=== PATIENT | female | born 1975 | race Caucasian/White ===

== ENCOUNTER 2016-04-12 23:16 | Emergency (ER) | payer OTHER ==
[2016-04-12] MEDS ORDERED: 0.9 % SODIUM CHLORIDE 1,000 ML BAG IV ONE (23:37)
[2016-04-12] MEDS ORDERED: ONDANSETRON HCL IV 4 MG/2 ML VIAL IV ONE (23:37)
[2016-04-12] MEDS ORDERED: KETOROLAC 30 MG/ML VIAL IVP ONE (23:37)
--- NOTE | 2016-04-12 23:43 | Emergency Department Record ---
History of Present Illness - General Chief Complaint: Abdominal Pain Stated Complaint: RUQ PAIN/BACK PAIN Time Seen by Provider: 04/12/16 23:36 Source: Patient Mode of Arrival: Ambulatory Limitations: No limitations - History of Present Illness Initial Comments: 41 yo female presents with right upper abdominal pain that started about 1.5 hours ago after eating beef stirfry. She has some nausea. No fevers or chills. She denies a similar history of the same in the past. No diarrhea. She has a history of gastric sleeve surgery in August. She denies any complications from the surgery. She still has her gall bladder. MD Complaint: Abdominal pain Onset/Timin -: Minutes(s) Location: RUQ Radiation: Back Migration to: RUQ Severity: Moderate Quality: Aching Consistency: Constant Improves With: Nothing Worsens With: Eating Associated Symptoms: Chills, Nausea - Related Data Home Medications Medication Instructions Recorded Confirmed Last Taken Albuterol Sulfate [Ventolin Hfa] 1 - 2 puff IH .EVERY 4-6 HOURS PRN 11/03/1511/02/15 Amitriptyline HCl 50 mg PO QPM 11/03/15 11/03/15 11/02/15 Ascorbic Acid [Vitamin C] 1,000 mg PO BID 11/03/15 11/03/15 11/02/15 Cholecalciferol (Vitamin D3) 5,000 unit PO QAM 11/03/15 11/03/15 11/02/15 [Vitamin D3] Desog-E.estradiol/E.estradiol 1 each PO QPM 11/03/15 11/03/15 11/02/15 [Kariva 28 Day Tablet] Ferrous Gluconate [Iron] 65 mg PO BID 11/03/15 11/03/15 11/02/15 Fluticasone/Vilanterol [Breo 1 inh PO QAM 11/03/15 11/03/15 11/02/15 Ellipta 200-25 Mcg INH] Gabapentin [Gabapentin] 600 mg PO TID 11/03/15 11/03/15 11/02/15 Omeprazole [Omeprazole] 40 mg PO QAM 11/03/15 11/03/15 11/02/15 Prednisone [Prednisone] 7.5 mg PO QAM 11/03/15 11/03/15 11/02/15 Topiramate [Topiramate] 50 mg PO BID 11/03/15 11/03/15 11/02/15 Allergies Allergy/AdvReac Type Severity Reaction Status Date / Time gluten AdvReac DIZZINESS Verified 11/03/15 13:18 lactase [From Dairy Aid] AdvReac DIARRHEA Verified 11/03/15 13:18 Penicillins AdvReac HIVES Verified 11/03/15 13:18 Travel Screening - Travel/Exposure Within Last 30 Days Have you traveled within the last 30 days?: No - Travel Symptoms Symptom Screening: None Review of Systems Constitutional: Denies: Chills, Fever, Malaise, Night sweats, Weakness Eyes: Denies: Eye discharge ENT: Denies: Congestion, Epistaxis, Throat pain Respiratory: Denies: Cough, Dyspnea, Hemoptysis, Stridor Cardiovascular: Denies: Chest pain, Palpitations, Syncope Endocrine: Denies: Fatigue, Polydipsia, Polyuria Gastrointestinal: Reports: As per HPI, Abdominal pain, Nausea. Denies: Constipation, Diarrhea, Hematochezia, Melena, Vomiting Genitourinary: Denies: Dysuria, Urgency Musculoskeletal: Denies: Arthralgia, Back pain, Joint swelling, Myalgia, Neck pain Skin: Denies: Bruising, Change in color, Rash Neurological: Denies: Confusion, Headache Psychiatric: Denies: Anxiety Hematological/Lymphatic: Denies: Blood Clots, Easy bleeding, Easy bruising, Swollen glands Past Medical History - SOCIAL HISTORY Smoking Status: Never smoker - RESPIRATORY Hx Respiratory Disorders: Yes Hx Asthma: Yes - CARDIOVASCULAR Hx Cardio Disorders: No - NEURO Hx Neuro Disorders: No - GI Hx GI Disorders: Yes Hx Reflux: Yes - Hx Genitourinary Disorders: No - ENDOCRINE Hx Endocrine Disorders: No - MUSCULOSKELETAL Hx Musculoskeletal Disorders: Yes Hx Arthritis: Yes (RA) Hx Fibromyalgia: Yes - PSYCH Hx Psych Problems: Yes Hx Depression: Yes - HEMATOLOGY/ONCOLOGY Hx Hematology/Oncology Disorders: No Family Medical History Any Significant Family History?: Yes Hx Cancer: Grandparents Hx Diabetes: Father, Mother, Grandparents Hx Stroke: Grandparents Physical Exam - General General Appearance: Alert, Oriented x3, Cooperative, No acute distress Limitations: No limitations - Head Head exam: Normal inspection - Eye Eye exam: Normal appearance, PERRL. negative: Conjunctival injection, Periorbital swelling, Scleral icterus - ENT ENT exam: Normal exam, Mucous membranes moist Ear exam: Normal external inspection Nasal Exam: Normal inspection Mouth exam: Normal external inspection Teeth exam: Normal inspection Throat exam: Normal inspection - Neck Neck exam: Normal inspection, Full ROM. negative: Tenderness - Respiratory Respiratory exam: Normal lung sounds bilaterally. negative: Respiratory distress - Cardiovascular Cardiovascular Exam: Regular rate, Normal rhythm, Normal heart sounds - GI/Abdominal GI/Abdominal exam: Soft, Tenderness (soft but tender in the RUQ, no mass). negative: Distended, Guarding, Rebound, Rigid - Extremities Extremities exam: Normal inspection, Full ROM, Normal capillary refill. negative: Tenderness - Back Back exam: Reports: Normal inspection, Full ROM. Denies: CVA tenderness (R), CVA tenderness (L), Muscle spasm, Rash noted, Tenderness - Neurological Neurological exam: Alert, Normal gait, Oriented X3 - Psychiatric Psychiatric exam: Normal affect, Normal mood. negative: Agitated, Anxious - Skin Skin exam: Dry, Intact, Normal color, Warm Course Vital Signs 04/12/16 23:19 Temperature 98.2 F Pulse Rate 72 Respiratory 18 Rate Blood Pressure 124/67 Pulse Ox 100 - Reevaluation(s) Reevaluation #1: The vitals were reviewed No acute changes labs ordered 04/12/16 23:42 Reevaluation #2: The patient is doing much better We discussed options of setting up and US in the morning She declined the offer at this time. She will call Dr Justice to set up an outpatient US We discussed immediately returning to the ED if she has a return of pain, any fever, vomiting, or new concerns. 04/13/16 00:24 Medical Decision Making - Lab Data Result diagrams: 04/12/16 23:30 04/12/16 23:30 Disposition Disposition: Discharge Clinical Impression: Right upper quadrant abdominal pain Disposition: Home, Self-Care Condition: (1) Good Instructions: Abdominal Pain (ED), Biliary Colic (ED) Additional Instructions: Return immediately if you have uncontrolled pain, any fever or vomiting Call Dr Justice tomorrow to request an outpatient US and a recheck to discuss this ER visit and the results Forms: Patient Portal Access Time of Disposition: 00:27
[2016-04-12 23:44] LABS: BASO % 0.5 % (0-6); EOS % 1.1 % (0-6); GRAN % 60.4 % (47-80); HEMATOCRIT 40.1 % (35.0-47.0); HEMOGLOBIN 12.8 gm/dl (11.6-16.0); LYMPH % 30.6 % (16-45); MEAN CELL VOLUME 93.9 fl (81-97); MEAN CORPUSCULAR HGB CONC 31.9 g/dl (32-36); MEAN PLATELET VOLUME 9.9 fl (7.4-10.4); MONO % 7.4 % (0-9); PLATELET COUNT 344 K/uL (130-400); RED BLOOD COUNT 4.27 M/uL (3.80-5.40); RED CELL DISTRIBUTION WIDTH 14.9 % (11.5-14.5); WHITE BLOOD COUNT W/O DIFF 10.7 K/uL (4.2-12.2)
[2016-04-12 23:55] LABS: ALB/GLOB RATIO 1.4 (1.1-1.8); ALBUMIN 4.4 gm/dL (3.5-5.0); ALKALINE PHOSPHATASE 75 U/L (38-126); ALT/SGPT 24 U/L (9-52); ANION GAP 17.7 (7-16); AST/SGOT 33 U/L (14-36); BILIRUBIN,TOTAL 0.59 mg/dL (0.2-1.3); BLOOD UREA NITROGEN 16 mg/dL (7-17); CARBON DIOXIDE 19.3 mmol/L (22-30); CREATININE 0.7 mg/dL (0.52-1.04); EST GLOMERULAR FILTRATION RATE > 60 ml/min; GLUCOSE,RANDOM 106 mg/dL (70-110); LIPASE 300 U/L (23-300); TOTAL PROTEIN 7.5 gm/dL (6.3-8.2)
== END 2016-04-13 00:37 | disposition home or self-care (01) ==
LOC: ER 23:16
DX: R10.11 Right upper quadrant pain (principal); R11.0 Nausea
CPT/HCPCS: 99284 ×2; 96374; 96375; 83690; 85025; 80053; J1885; J2405; J7030